=== PATIENT | female | born 1960 | race American Indian/Alaskan Native ===

== ENCOUNTER 2016-06-28 19:31 | Emergency (ER) | payer MEDICARE ==
[2016-06-28 19:57] VITALS: BP 166/88
== END 2016-06-28 23:00 | disposition left against medical advice (07) ==
LOC: ED 19:31
DX: K08.89 Other specified disorders of teeth and supporting structures (principal); Z53.21 Procedure and treatment not carried out due to patient leaving prior to being seen by health care provider